=== PATIENT | female | born 1955 | race Caucasian/White ===

== ENCOUNTER → 2017-09-12 | Outpatient (CLI) | payer OTHER ==
[~2017-09-12] VITALS: Ht 160 cm; Wt 58.5 kg
[~2017-09-12] MED LIST: ATOR40TA16 PO; B-122000 PO; BIOT10TA PO; CALC1TAB87 PO; CETI10 PO; CHLORHEXIDINE GLUCONATE 2 % 1 PACK (2 CLOTHS) TOPICAL PRN; DICY10CA12 PO; DO NOT ADM ANY ANTICOAGULANT DRUGS PRN; EFFE150C PO; GABA100C4 PO; INSULIN HUMAN REGULAR 1,000 UNITS/10 ML VIAL SQ PRN; LACTATED RINGER'S 1000 ML IV PRN; LIDOCAINE HCL 1% PF 5 ML SYRINGE OTHER ONE; LOSA100T PO; METF-382 PO; METOPROLOL TARTRATE 25 MG TAB PO PRN; MIRA3350 PO; MULT-65 PO; OMEGCAP PO; POVIDONE IODINE 5% (ANTISEPSIS KIT) 4 APPLICATIONS EACH NARE PRN; PROPOFOL 200 MG/20 ML AMP IV ONE; PROT40TA PO; RANI300T PO; SODIUM CHLORID 0.9% 500 ML IV PRN; VENL75TA PO
--- NOTE | 2017-09-12 11:35 | GIPROC ---
[facility] [address] [facility]. [facility], [address] EGD PROCEDURE REPORT EXAM DATE: 09/12/2017 PATIENT NAME: Pat Overton MR #: [id number] BIRTHDATE: 1955 ATTENDING: Adriana Gardner MD ORDER #: [id number] [employer]LE[employer] WORKER: Stacy Stokes STATUS: outpatient INDICATIONS: The patient is a 62 yr old female here for an EGD due to history of esophageal reflux and dysphagia PROCEDURE PERFORMED: EGD w/ dilation of esophagus via guidewire MEDICATIONS: Per Anesthesia and None. TOPICAL ANESTHETIC: CONSENT: The patient understands the risks and benefits of the procedure and understands that these risks include, but are not limited to: sedation, allergic reaction, infection, perforation and/or bleeding. Alternative means of evaluation and treatment include, among others: physical exam, x-rays, and/or surgical intervention. The patient elects to proceed with this endoscopic procedure. medical equipment was checked for proper function. Hand hygiene and appropriate measures for infection prevention was taken. After the risks, benefits and alternatives of the procedure were thoroughly explained, Informed consent was verified, confirmed and timeout was successfully executed by the treatment team. The patient was anesthetized with topical anesthesia and the EC-3490Li (Pedi C) endoscope was introduced through the mouth and advanced to the second portion of the duodenum. Retroflexed views revealed no abnormalities The gastroscope was then slowly withdrawn and removed. ESOPHAGUS: The mucosa of the esophagus appeared normal. STOMACH: A Inocencia -en-Y anastomosis was found. Stenosis was seen at the site. The stricture was dilated using a 17mm (51Fr) savary dilator over guidewire. DUODENUM: The duodenal mucosa appeared normal in the bulb and second portion of the duodenum. ADVERSE EVENTS: There were no complications. IMPRESSIONS: 1. The esophagus appeared normal 2. Inocencia -en-Y anastomosis was found; The stricture was dilated using a 17mm (51Fr) savary dilator over guidewire 3. Normal duodenal mucosa in the bulb and second portion of the duodenum 4. Retroflexed views revealed no abnormalities RECOMMENDATIONS: 1. Anti-reflux regimen 2. Continue PPI PATIENT CONDITION: stable DISPOSITION: Home REPEAT EXAM: Return 1 year EGD with dilatation Adriana Gardner MD eSigned: Adriana Gardner MD 09/12/2017 11:35 AM cc: PATIENT NAME: Pat Overton MR#: [id number]
--- NOTE | 2017-09-12 11:45 | GIPROC ---
[facility] [address] [facility]. [facility], [address] COLONOSCOPY PROCEDURE REPORT EXAM DATE: 09/12/2017 PATIENT NAME: Pat Overton MR #: [id number] BIRTHDATE: 1955 ENDOSCOPIST: Adriana Gardner MD ORDER #: [id number] PLANT ETIOLOGIST: Stacy Stokes STATUS: outpatient INDICATIONS: The patient is a 62 yr old female here for a colonoscopy due to patient's immediate family history of colon cancer PROCEDURE PERFORMED: Colonoscopy, surveillance MEDICATIONS: Per Anesthesia and None. PREP QUALITY: The Austin Bowel Prep Score was Right colon 2, Mid colon 1, and Left colon 1. Total = 4. ESTIMATED BLOOD LOSS: None CONSENT: The patient understands the risks and benefits of the procedure and understands that these risks include, but are not limited to: sedation, allergic reaction, infection, perforation and/or bleeding. Alternative means of evaluation and treatment include, among others: physical exam, x-rays, and/or surgical intervention. The patient elects to proceed with this endoscopic procedure. medical equipment was checked for proper function. Hand hygiene and appropriate measures for infection prevention was taken. After the risks, benefits and alternatives of the procedure were thoroughly explained, Informed consent was verified, confirmed and timeout was successfully executed by the treatment team. A digital exam revealed external hemorrhoids The Pentax EC-3490Li endoscope was introduced through the anus and advanced to the cecum, which was identified by both the appendix and ileocecal valve. The instrument was then slowly withdrawn as the colon was fully examined. COLON FINDINGS: The colonic mucosa appeared normal throughout the entire examined colon. Retroflexed views revealed internal hemorrhoids and Retroflexed views revealed small internal hemorrhoids The scope was then completely withdrawn from the patient and the procedure terminated. PROCEDURE WITHDRAWAL TIME:6minutes ADVERSE EVENTS: There were no complications. IMPRESSIONS: 1. The colonic mucosa appeared normal throughout the entire examined colon 2. Retroflexed views revealed internal hemorrhoids 3. Retroflexed views revealed small internal hemorrhoids 4. Revealed external hemorrhoids RECOMMENDATIONS: 1. Continue surveillance 2. Yearly hemoccult RECALL: Return 1 year Colonoscopy Adriana Gardner MD eSigned: Adriana Gardner MD 09/12/2017 11:44 AM cc: PATIENT NAME: Pat Overton MR#: [id number]
[2017-09-12 12:59] VITALS: BP 135/69; PULSE 64; RESP 18; TEMP 97.7; O2SAT 100
--- NOTE | 2017-09-12 14:40 | EKG ---
Date Performed: 09/12/2017 Time Performed: 08:48:38 PTAGE: 62 years EKG: Sinus rhythm NORMAL ECG NO PREVIOUS TRACING DOCTOR: Prince Thomas Interpretating Date/Time 09/12/2017 14:39:33
== END ==
LOC: HSDC 08:23
PROVIDERS: ATTEND Internal Medicine Gastroenterology
DX: R13.10 Dysphagia, unspecified (principal); K21.9 Gastro-esophageal reflux disease without esophagitis; R11.0 Nausea; D64.9 Anemia, unspecified; Z80.0 Family history of malignant neoplasm of digestive organs; K64.4 Residual hemorrhoidal skin tags; K64.8 Other hemorrhoids; I10 Essential (primary) hypertension; R19.8 Other specified symptoms and signs involving the digestive system and abdomen; Z98.84 Bariatric surgery status
CPT/HCPCS: 00813; 43248; 45378; 93005; C1769; J7120